=== PATIENT | male | born 1985 | race African-American/Black ===

== ENCOUNTER 2017-08-07 21:17 | Emergency (ER) | payer SELFPAY ==
[2017-08-07] MEDS: LIDOCAINE/EPI/TETRACAINE TOPICAL GEL 3 ML. TP (21:36)
[2017-08-07] MEDS: oxyCODONE/APAP 5/325 1 TAB TABLET PO (22:14)
== END 2017-08-08 00:04 | disposition home or self-care (01) ==
LOC: ER 08-08 00:04
DX: L02.31 Cutaneous abscess of buttock (principal); Z91.013 Allergy to seafood
CPT/HCPCS: 10060; 99283-25